=== PATIENT | female | born 1955 | race Caucasian/White ===

== ENCOUNTER 2024-08-05 18:11 | Inpatient (IN) | payer MEDICARE, BC, SELFPAY ==
[2024-08-05] VITALS (10 sets, daily range): BP systolic 141–186; BP diastolic 78–174; BMI 28.1; BMI 27.8
[2024-08-05 14:25] LABS: % Basophils 0.9 % (0-2); % Eosinophils 5.2 % (0-6); % Immature Granulocytes 0.2 % (0-0.5); % Lymphocytes 26.8 % (20.5-51.1); % Monocytes 7.2 % (1.7-9.3); % Neutrophils 59.7 % (42.2-75.2); Absolute Basophils 0.1 10^3/uL (0-0.2); Absolute Eosinophils 0.3 10^3/uL (0-0.7); Absolute Lymphocytes 1.8 10^3/uL (1.2-3.4); Absolute Monocytes 0.5 10^3/uL (0.1-0.6); Absolute Neutrophils 3.9 10^3/uL (1.4-6.5); Hematocrit 43.3 % (37.0-47.0); Hemoglobin 14.7 g/dL (12.0-16.0); Mean Corp Hgb Conc. 33.9 g/dL (33.0-37.0); Mean Corpuscular Hgb 32.6 pg (27.0-31.0); Mean Platelet Volume 9.7 fL (7.4-10.4); Nucleated Red Blood Cells % 0 %; Platelet Count 221 10^3/uL (130-400); Red Blood Cell Count 4.51 10^6/uL (4.20-5.40); Red Cell Dist. Width 12.8 % (11.5-14.5); White Blood Cell Count 6.5 10^3/uL (4.8-10.8)
[2024-08-05 14:39] LABS: ALT (SGPT) 23 U/L (0-35); AST (SGOT) 25 U/L (14-36); Albumin 4.7 g/dl (3.5-5.0); Alkaline Phosphatase 82 U/L (38-126); Blood Urea Nitrogen 25 mg/dl (7-17); Calcium 10.2 mg/dl (8.4-10.2); Carbon Dioxide 30 mmol/L (22-30); Chloride 103 mmol/L (98-107); Glucose 86 mg/dl (70-99); Potassium 4.1 mmol/L (3.5-5.1); Sodium 142 mmol/L (135-145); Total Protein 7.3 g/dl (6.3-8.2); eGFR > 60.00
[2024-08-05 14:51] LABS: Troponin I < 0.012 ng/ml
--- NOTE | 2024-08-05 15:31 | CON.CAR ---
Addendum entered and electronically signed by Otilio Grullon MD 08/05/24 19:57:
I saw and examined the patient in the ER at about 1630 hrs.
The BAG MAKING MACHINE OPERATOR's note was reviewed and I agree with the note.
Comment: Pacemaker interrogated here in by me and [employer] rep. RV lead has failure confirmed. She has sick sinus syndrome and no heart block. Rare RV pacing. Device reprogrammed to AAIR 60-130 to prevent inhibition of pacing from noise of
RV channel. Dr. Odell will discuss lead management including extraction reimplantation, capping and new lead placement, or very conservative approach with the reprogramming performed now.
Original Note:
Consultation
Consultation Request
Date/Time Consultation Requested: 08/05/2024 16:00
Date/Time Consultation Performed: 08/05/2024 16:00
Requesting Provider: Dr. Bird
Performing Provider: BEATRIZ Yepez for Dr. Grullon
Reason for Consultation: RV lead fracture
Medical History
-
Chief Complaint: Pacemaker malfunction
History of Present Illness:
Remedios Lake is a 68-year-old female (known to Dr. Salcedo, her primary clin nurse), with sick sinus syndrome status post Medtronic PPM (2020), PACs, PVCs, NSVT, hypertension, hypothyroidism, and former smoker who presented to the emergency
department with a chief complaint of pacemaker malfunction. She was told by her primary cardiology office that her pacemaker lead was broken and to immediately present to the emergency room. She has no complaints at this time. She has
palpitations which are chronic. They feel 'the same as usual'. She denies chest pain and dizziness. No syncope/presyncope.
Past Medical History
Past Medical History: Arrhythmias (PACs, NSVT, SSS S/P PPM [2020]), Asthma, HTN and Hypothyroidism
Past Surgical History: Orthopedic and Other (Umbilical hernia )
Social History
Tobacco: Former Smoker
Personal:
Living: With Family
Employment: Retired
Family History
Family History: Reviewed & Not Pertinent
Allergies / Home Medications
Allergy/AdvReac Type Severity Reaction Status Date / Time
iodine Allergy Unknown Verified 08/05/24 14:07
morphine Allergy Unknown Verified 08/05/24 14:07
Review of Systems
-
History Source: Patient
All other systems: Negative unless noted
Constitutional: No Symptoms
EENT: No Symptoms
Respiratory: No Symptoms
Cardiac: Palpitations
Abdomen/GI: No Symptoms
: No Symptoms
Musculoskeletal: No Symptoms
Skin: No Symptoms
Neurological: No Symptoms
Endocrine: No Symptoms
Hematologic/Lymphatic: No Symptoms
Physical Exam
Vital Signs
Temp Pulse Resp BP Pulse Ox
98.4 F 74 18 154/100 98
08/05/24 14:07 08/05/24 14:07 08/05/24 14:07 08/05/24 14:07 08/05/24 14:07
Lab Results
08/05/24 14:14
08/05/24 14:14
Troponin I < 0.012 ng/ml 08/05/24 14:14
Physical Exam
General: Well Developed, Well Nourished, No Apparent Distress and Comfortable
HEENT: Normocephalic, Anicteric and Moist Mucous Membranes
Respiratory: Non Labored Respirations
Cardiac: S1/S2 and Regular Rhythm
Breast: Deferred by me
GI: Soft, Non Tender, Non Distended and Normal Bowel Sounds
Rectal: Deferred by Provider
Genito-urinary: No Costovertebral Tender
Musculoskeletal: No Clubbing, No Cyanosis and No Edema
Skin: Warm and Dry
Neuro: AO x 3
Hematologic/Lymphatic: No Lymphadenopathy
Psych: Calm
Impression / Plan
-
RV lead fracture ([employer]tronic)
-Last device check showed AP 95.9%, [employer] NETWORK ENGINEER 0.5% on 07/28/2024
-Programming changed to AAIR 60�120
-Echocardiogram on Thursday
-Dr. Odell to evaluate patient tomorrow for possible lead extraction
Palpitations, she has known PACs/PVCs which do not feel any different to her
Hypertension, chronic
Asthma, chronic and stable, no acute exacerbation
Hypothyroidism, on levothyroxine
Spinal rods, she reports one of these is also fractured
Data Reviewed
-
EKG: Report Reviewed by me
Labs: Labs Reviewed by me
Old Records: Reviewed
--- NOTE | 2024-08-05 17:02 | ED.GENMED ---
History of Present Illness
General
Chief Complaint: AICD Problem
Time Seen by Provider: 08/05/24 16:33
History of Present Illness
History of Present Illness:
Patient is a 68-year-old woman with history of sick sinus syndrome with pacemaker, asthma, hypertension presenting to the emergency department with RV lead fracture. Patient states that she received a call stating that she had a fracture of her RV
lead by her correspondence specialist Dr. Salcedo at [facility]. She was told to come to the emergency department for further evaluation. She denies any chest pain. Occasionally has palpitation secondary to premature contractions. She states that she is
currently at her baseline. Denies any chest pain or shortness of breath which she did state that she had initially. She denies any lightheadedness or syncopal events.
Phy Exam
Physical Exam
Physical Exam:
GENERAL: in no acute distress
HEENT: normocephalic, extraocular movements intact, moist oral mucosa
NECK: normal inspection
RESPIRATORY: no respiratory distress, clear to auscultation bilaterally
CARDIOVASCULAR: regular rate and rhythm
ABDOMEN/: soft, non-distended, non-tender to palpation, no rebound or guarding
EXTREMITIES: non-tender, no edema/swelling
NEUROLOGIC: awake and alert, moves all extremities
SKIN: warm
Course
Orders/Labs/Results
Orders:
Orders
08/05/24 13:54
ECG [Electrocardiogram (*1)] Urgent
Reason for Study: Palpitations
08/05/24 13:55
EKG- Treatment ONCE
08/05/24 14:14
Complete Blood Count/With Diff Urgent
Comprehensive Metabolic Panel Urgent
Troponin I Urgent
08/05/24 14:54
CXR2 [CR Chest - 2 Views ] Routine
Comment:
Reason For Exam: Lead fracture
Abnormal Lab Results
08/05/24
14:14
MCH 32.6 H pg
(27.0-31.0)
BUN 25 H mg/dl
(7-17)
08/05/24 14:14
08/05/24 14:14
Vital Signs
Initial and Last Documented VS:
Initial Vital Signs
Temp Pulse Resp BP Pulse Ox
98.4 F 74 18 154/100 98
08/05/24 14:07 08/05/24 14:07 08/05/24 14:07 08/05/24 14:07 08/05/24 14:07
Last Documented Vital Signs
Temp Pulse Resp BP Pulse Ox
98.4 F 62 18 162/89 99
08/05/24 14:07 08/05/24 16:17 08/05/24 16:17 08/05/24 16:17 08/05/24 16:17
MDM/Problems Addressed
Differential Diagnosis Includes:
Patient is a 60-year-old woman presenting to the emergency department with the pacemaker lead fracture. Prior to evaluation cardiology evaluated patient. I did discuss with cardiology. They changed her programming to AAIR. They recommended
admission for observation and likely echocardiogram later in the week. Blood work obtained prior to evaluation is unremarkable. Discussed with hospitalist who accepted patient to their service.
*Critical Care Note
Total Time (30-74mins, 75-104mins- exclusive of procedures): Not Applicable
ED Attending Note
-
Portions of this chart may have been created with voice recognition software.� Occasional wrong word or��sound alike� substitutions may have occurred due to the inherent limitations of voice recognition software.
Discharge Plan
Departure
Patient Disposition: Admit
Date of Disposition: 08/05/24
Time of Disposition: 17:05
Presentation/result/management discussed w/ accepting MD/DO: Hospitalist
Discharge Problem:
Pacemaker lead fracture
Interventions
Interventions:
*Risk Screen - Suicide Last Done: 08/05/24 14:07
*General Assessment Last Done: 08/05/24 14:07
*Neglect/Abuse Screening Last Done: 08/05/24 14:07
*ED COVID-19 Vaccine History Last Done: 08/05/24 16:52
ED- Cardiac Assessment Last Done: 08/05/24 16:52
Discharge Date and Time
Print Language: FAROESE
--- NOTE | 2024-08-05 17:13 | HPS.HSE ---
Family Physician
-
Family Physician:
Chief Complaint
-
malfunction PPM
History of Present Illness
Patient is 68 years old female with history of hypertension, hypothyroidism, sick sinus syndrome status post pacemaker in the past, asthma, came into the hospital with pacemaker malfunction. Patient was seen by his primary electric lineman who detected
that one of her pacemaker lead was broken and was asked to come to the hospital immediately. Patient does complain of some palpitations on and off and also she states that she has been having some dizziness sort of vertigo-like symptoms over the
last several days. She denies any chest pain or shortness of breath. Denies palpitations at the moment. Denies dizziness at the moment. Denies syncope or presyncope. She also denies any fevers or chills nausea vomiting or diarrhea. Cardiology
consulted in the ER. Labs demonstrate normal electrolytes and normal renal function as well as normal hemoglobin. She was referred to hospitalist service for evaluation.
Medical History
Past Medical History
Past Medical History: Reports Other (Hypertension, hypothyroidism, osteoarthritis, chronic lower back pain, sick sinus syndrome status post pacemaker in 2020, NSVT, PACs, asthma.)
Past Surgical History: Reports Other (Umbilical hernia repair, orthopedic surgeries in the past.)
Social History
Tobacco: Former Smoker
Alcohol: None
Drug: None
Family History
Family History: Not pertinent
Allergies / Home Medications
Allergies reflects when Allergies were last updated in [facility].
Home Medications with original date entered in [facility]
Allergy/Medication List:
Allergies
Allergy/AdvReac Type Severity Reaction Status Date / Time
iodine Allergy Unknown Verified 08/05/24 14:07
morphine Allergy Unknown Verified 08/05/24 14:07
Home Medications
Cascara 1 cap PO DAILY 08/05/24
Cascara 2 cap PO HS 08/05/24
albuterol sulfate 90 mcg/actuation aerosol inhaler 2 puff inhalation R Q4HPRN PRN sob/wheezing 08/05/24
amitriptyline 10 mg tablet 10 mg PO HS 08/05/24
amlodipine 2.5 mg tablet 2.5 mg PO BID 08/05/24
carvedilol 6.25 mg tablet 6.25 mg PO BID 08/05/24
lansoprazole 30 mg capsule,delayed release 30 mg PO DAILY 08/05/24
levothyroxine 100 mcg tablet 100 mcg PO DAILY 08/05/24
meclizine 25 mg tablet 25 mg PO Q6HPRN PRN vertigo 08/05/24
ramipril 10 mg capsule 10 mg PO DAILY 08/05/24
therapeutic multivitamin 1 tab PO DAILY 08/05/24
Review of Systems
-
A 12 point ROS was completed and negative except as noted: Yes
Physical Exam
Vital Signs
Vital Signs
Temp Pulse Resp BP Pulse Ox
98.4 F 62 18 162/89 99
08/05/24 14:07 08/05/24 16:17 08/05/24 16:17 08/05/24 16:17 08/05/24 16:17
Physical exam:
General: Well Developed, Well Nourished and No Apparent Distress
HEENT: Normocephalic, Atraumatic and Moist Mucous Membranes
Respiratory: Clear to Auscultation; Negative Wheezes, Rales or Rhonchi
Cardiac: Regular Rhythm and S1/S2
GI: Soft, Nontender and Nondistended
Musculoskeletal: No Clubbing, No Cyanosis and No Edema
Neuro: Awake, Alert and Oriented
Psych: Calm
Physical Exam
General: Other
Laboratory Results
-
08/05/24 14:14
08/05/24 14:14
Laboratory Results
Total Bilirubin 1.0 mg/dl (0.2-1.3) 08/05/24 14:14
AST 25 U/L (14-36) 08/05/24 14:14
ALT 23 U/L (0-35) 08/05/24 14:14
Alkaline Phosphatase 82 U/L (38-126) 08/05/24 14:14
Troponin I < 0.012 ng/ml 08/05/24 14:14
Data Reviewed
-
Lab Data: Labs Reviewed by me
Impression/Plan
-
IMPRESSION:
Patient is 68 years old female with multiple comorbidities came into the hospital and found to have pacemaker lead malfunction. Patient at increased risk of morbidity mortality patient due to cardiac arrhythmias and malfunction of pacemaker
therefore she will need to be monitor patient and observe in the cardiac unit and requires cardiology intervention therefore require inpatient hospitalization.
PLAN:
Pacemaker malfunction:
Patient to IVU
Keep on cardiac monitoring
Cardiology consult-discussed with cardiology in person today
Cardiology is programming pacemaker to AAIR to 60-120
EPS will evaluate for possible lead extraction tomorrow
Plan for echocardiogram, most likely on Thursday
Hypertension:
Continue home antihypertensives except those that affect the AV node until cleared by cardiology. Will continue with ramipril 10 mg p.o. daily and amlodipine 2.5 mg p.o. daily.
Monitor blood pressure and adjust medications accordingly.
Hypothyroidism:
Continue levothyroxine 100 mcg p.o. daily
Osteoarthritis and chronic pain:
Tylenol as needed
IV Dilaudid as needed
Bowel regimen
Asthma:
Continue bronchodilators as needed
Insomnia:
Continue amitriptyline 10 mg p.o. at nighttime
DVT prophylaxis:
SCDs
CODE STATUS:
Full code
Time spent 75 min
--- NOTE | 2024-08-05 19:17 | PTCARENOTE ---
Pt admitted from ED, pt denies any discomfort. Telemetry shows atrial paced rhythm.
--- NOTE | 2024-08-05 20:52 | PTCARENOTE ---
Received patient at change of shift. Patient awake, alert, and oriented sitting in the chair. BP 143/99, A-Paced 60s-70s, 98% on room air. Patient and RN discussed medication regime-- usually takes Coreg with dinner and amlodipine at bedtime (with
amitriptyline). Neither meds were included in MAR-- reached out to Nader Murphy NP. Adjusted medications-- see MAR. Discussed plan of care for evening. Patient verbalized understanding. Call armstrong within reach.
[2024-08-05] MEDS: ELAVIL 10 MG PO (22:13)
[2024-08-05] MEDS: NORVASC 2.5 MG PO (22:13)
[2024-08-06] VITALS (8 sets, daily range): BP systolic 83–143; BP diastolic 60–119
[2024-08-06] MEDS: SYNTHROID 100 MCG PO (04:46)
[2024-08-06] MEDS: TYLENOL 650 MG PO (04:46)
[2024-08-06 05:17] LABS: Hematocrit 38.6 % (37.0-47.0); Hemoglobin 13.2 g/dL (12.0-16.0); Mean Corp Hgb Conc. 34.2 g/dL (33.0-37.0); Mean Corpuscular Hgb 32.7 pg (27.0-31.0); Mean Corpuscular Volume 95.5 fL (81.0-99.0); Mean Platelet Volume 10.2 fL (7.4-10.4); Platelet Count 203 10^3/uL (130-400); Red Blood Cell Count 4.04 10^6/uL (4.20-5.40); Red Cell Dist. Width 12.9 % (11.5-14.5); White Blood Cell Count 6.1 10^3/uL (4.8-10.8)
[2024-08-06 05:47] LABS: Blood Urea Nitrogen 20 mg/dl (7-17); Calcium 9.7 mg/dl (8.4-10.2); Carbon Dioxide 28 mmol/L (22-30); Chloride 104 mmol/L (98-107); Estimated Creatinine Clearance 95 ml/min; Glucose 99 mg/dl (70-99); Magnesium 2.1 mg/dl (1.6-2.3); Potassium 3.8 mmol/L (3.5-5.1); Sodium 141 mmol/L (135-145); eGFR > 60.00
--- NOTE | 2024-08-06 08:17 | PTCARENOTE ---
Patient sitting on side of bed finished breakfast, complaints of lightheadedness and nausea BP 83/60. Placed supine in bed symptoms resolved, BP 120/72
--- NOTE | 2024-08-06 09:42 | W.PN.HOSP.TC ---
Today's Communication/Plan
-
d/c planning today
Assessment / Plan
Assessment / Plan
Physical exam:
General: Well Developed, Well Nourished and No Apparent Distress
HEENT: Normocephalic, Atraumatic and Moist Mucous Membranes
Respiratory: Clear to Auscultation; Negative Wheezes, Rales or Rhonchi
Cardiac: Regular Rhythm and S1/S2
GI: Soft, Nontender and Nondistended
Musculoskeletal: No Clubbing, No Cyanosis and No Edema
Neuro: Awake, Alert and Oriented
Psych: Calm
A/P:
Pacemaker malfunction with R lead fracture:
Cardiology reviewed with patient options and cleared her for d/c today and outpatient revision.
Prior to today:
Keep on cardiac monitoring
Cardiology consult-discussed with cardiology in person today
Cardiology is programming pacemaker to AAIR to 60-120
EPS will evaluate for possible lead extraction tomorrow
Plan for echocardiogram, most likely on Thursday
Hypertension:
Continue home antihypertensives except those that affect the AV node until cleared by cardiology. Will continue with ramipril 10 mg p.o. daily and amlodipine 2.5 mg p.o. daily.
Monitor blood pressure and adjust medications accordingly.
Hypothyroidism:
Continue levothyroxine 100 mcg p.o. daily
Osteoarthritis and chronic pain:
Tylenol as needed
IV Dilaudid as needed
Bowel regimen
Asthma:
Continue bronchodilators as needed
Insomnia:
Continue amitriptyline 10 mg p.o. at nighttime
DVT prophylaxis:
SCDs
CODE STATUS:
Full code
Anticipated Discharge: Today
Subjective/Interval History
-
Date of Service: August 06, 2024
no new complaints
Objective Data
-
Labs:
Laboratory Results
08/06/24
04:42
WBC 6.1
Hgb 13.2
Hct 38.6
Plt Count 203
Sodium 141
Potassium 3.8
Chloride 104
Carbon Dioxide 28
BUN 20 H
Creatinine 0.6
Glucose 99
Calcium 9.7
Vital Signs:
Vital Signs
Temp Pulse Resp BP Pulse Ox
97.9 F 62 18 128/78 97
08/06/24 07:43 08/06/24 06:45 08/06/24 07:43 08/06/24 04:37 08/06/24 07:43
--- NOTE | 2024-08-06 11:48 | W.PN.CD ---
Today's Communication / Plan
-
-Stable for discharge
-Avoid strenuous exercise for the next few weeks
-Okay to perform activity of daily living
-No driving until extraction is done.
Impression / Plan
-
RV lead fracture ([employer]tronic)
-Last device check showed AP 95.9%, TEACHER 0.5% on 07/28/2024
-Programming changed to AAIR 60�120
-Patient is currently atrially paced. With programming changed, there is no sign of noise induced inhibition of the pacing
-RV lead fracture was noted on the interrogation.
-No obvious fractures noted on the x-ray.
-We discussed in detail various management options for the patient.
-At this time, the atrial pacemaker is working normally. There is no significant ventricular pacing needed for the patient
-We discussed conservative management with keeping atrial pacing only however with progressive disease, patient may need ventricular pacing in near future.
-Taking out a fractured lead is more important Adlee then lead. Alternatively, we can proceed with implantation of a second lead in the RV and The fractured RV lead.
-The third option would be to extract the fractured lead and reimplant a new RV lead. This appears to be the best option for the patient with no hardware left. However, at this time patient's pacemaker is working adequately and gives us enough
time to arrange for extraction safely.
-Will plan for lead extraction and implantation in a month or so with backup from CT surgery, perfusion and cardiac anesthesia
-Okay to discharge home today with continued monitoring and will plan for elective lead extraction plan in the next few weeks.
Palpitations, she has known PACs/PVCs which do not feel any different to her
Hypertension, chronic
Asthma, chronic and stable, no acute exacerbation
Hypothyroidism, on levothyroxine
Spinal rods, she reports one of these is also fractured
Physical Exam
Vital Signs/Labs
Vital Signs
Temp Pulse Resp BP Pulse Ox
98.3 F 62 18 128/78 98
08/06/24 11:28 08/06/24 11:23 08/06/24 11:28 08/06/24 04:37 08/06/24 11:28
08/05/24 08/06/24 08/07/24
06:59 06:59 06:59
Actual Weight 78.1 kg
08/06/24 04:42
08/06/24 04:42
Magnesium 2.1 mg/dl (1.6-2.3) 08/06/24 04:42
LAB Results
08/05/24
14:14
Troponin I < 0.012
Physical Exam
Constitutional: No acute distress and Comfortable
EENT: Anicteric and Moist mucous membranes
Cardiovascular: Rhythm & rate is regular, Pedal edema is absent, JVD pressure is normal and Systolic murmur absent
Respiratory: Respiratory effort normal, Lungs clear to auscul. and Wheeze Absent
GI: Soft, Distention absent, Non tender and Normal bowel sounds
Neuro/Psych: Alert, Oriented and AO x 3
Other: Cardiac Device Site (No sign of infection, fluctuation or discharge. Wound has healed nicely)
Data Reviewed
-
Date of Service: August 06, 2024
Medical Decision Making: External Notes
EKG: Tracing Personally Visualized and interpreted
Labs: Labs Reviewed by me
Old Records: Reviewed
[2024-08-06] MEDS: ALTACE 10 MG PO (12:07)
--- NOTE | 2024-08-06 14:34 | W.DCSUMMARY ---
Discharge Summary
Discharge Data
Date of Admission: 08/05/24
Date of Discharge: 08/06/24
-
Pending Results: No
Hospital Course
Patient is 68 years old female with sick sinus syndrome status post pacemaker, hypertension, hypothyroidism presented to the hospital with pacemaker malfunction. Cardiology noticed that she had pacemaker lead broken and asked her to present to the
hospital immediately. Patient was evaluated by cardiology and her device was reprogrammed to AAIR 60-130 to prevent inhibition of pacing from noise of RV channel. She was kept overnight on cardiac monitoring and she did well rest of hospital stay.
EP cardiology followed her next day and discussed with patient several options including keeping atrial pacing only but may need ventricular pacing in the future versus taking out a fractured lead versus proceeding with implantation of a second
lead in the right ventricle versus extraction of the fractured lead and reimplantation of a new right ventricular lead. In any event, since patient had adequate atrial pacing and working normally and no significant ventricular pacing needed
cardiology was okay for her to be discharged home today and plan for elective lead extraction in the next few weeks. She was instructed to avoid strenuous exercise and no driving until extraction is done but can continue with activity of daily
living. Otherwise, she is hemodynamically stable and afebrile. She is back on her home medications. Cardiology cleared her for discharge. She will be discharged in stable condition today.
Discharge duration: 35 minutes
Discharge Plan
-
Patient Disposition: Home (Routine Discharge)
Discharge Diagnosis/Procedures: Pacemaker malfunction with right lead fracture status post programming of pacer. Hypertension.
Diet: Low Cholesterol
Activity: Other activity
Additional Activity: As instructed by cardiology
Blood Work: PCP to order CBC, BMP within 1 week
Referrals:
Royce Odell MD [Active] - in two to three weeks
Terry Higuera DO [Family Provider] - in less than 1 week
Prescriptions:
Continued
carvedilol 6.25 mg tablet
6.25 mg PO BID
amlodipine 2.5 mg tablet
2.5 mg PO BID
levothyroxine 100 mcg tablet
100 mcg PO DAILY
amitriptyline 10 mg tablet
10 mg PO HS
meclizine 25 mg tablet
25 mg PO Q6HPRN PRN (Reason: vertigo)
lansoprazole 30 mg capsule,delayed release(DR/EC)
30 mg PO DAILY
albuterol sulfate 90 mcg/actuation HFA aerosol inhaler
2 puff INHALATION R Q4HPRN PRN (Reason: sob/wheezing)
ramipril 10 mg capsule
10 mg PO DAILY
therapeutic multivitamin Tablet
1 tab PO DAILY
Cascara
1 cap PO DAILY
Cascara
2 cap PO HS
Discharge Orders:
Discharge Patient (As Directed); Ordered 08/06/24
Ordered By: Junior Corado
Discharge Date and Time
Discharge Date/Time: 08/06/24 15:50
Print Language: MAORI
--- NOTE | 2024-08-06 15:09 | PTCARENOTE ---
Patient discharged to home. All discharge teaching completed, patient verbalized understanding. IV and telemetry removed. will drive patient home today
--- NOTE | 2024-08-08 16:35 | CM ---
pt is prev indep, no dc planning needs. dc to home
== END 2024-08-06 15:50 | disposition home or self-care (01) | DRG 310 ==
LOC: IVU 18:11
PROVIDERS: ADMITTING PHYSICIAN Hospitalist; CONSULT PHYSICIAN Internal Medicine Cardiovascular Disease; EMERGENCY PHYSICIAN Student in an Organized Health Care Education/Training Program; FAMILY PHYSICIAN Family Medicine
PROC: 4B02XSZ Measurement of Cardiac Pacemaker, External Approach (ICD-10-PCS; 2024-08-05)
DX: T82.110A Breakdown (mechanical) of cardiac electrode, initial encounter (principal); Y83.8 Other surgical procedures as the cause of abnormal reaction of the patient, or of later complication, without mention of misadventure at the time of the procedure; Y92.9 Unspecified place or not applicable; Y71.2 Prosthetic and other implants, materials and accessory cardiovascular devices associated with adverse incidents; I49.5 Sick sinus syndrome; E03.9 Hypothyroidism, unspecified; M19.90 Unspecified osteoarthritis, unspecified site; G89.29 Other chronic pain; M54.50 Low back pain, unspecified; G47.00 Insomnia, unspecified; J45.909 Unspecified asthma, uncomplicated; I10 Essential (primary) hypertension; Z87.891 Personal history of nicotine dependence; Z95.0 Presence of cardiac pacemaker; Z88.5 Allergy status to narcotic agent; Z91.041 Radiographic dye allergy status; Z79.890 Hormone replacement therapy
CPT/HCPCS: 71046; 80048; 80053; 83735; 84484; 85025; 85027; 93005; 99284

== ENCOUNTER 2024-12-23 07:35 | Inpatient (IN) | payer MEDICARE, BC, SELFPAY ==
[2024-12-12 13:18] VITALS: BMI 28.9
[2024-12-12 13:53] LABS: % Eosinophils 11.5 % (0-6); % Immature Granulocytes 0.2 % (0-0.5); % Lymphocytes 31.5 % (20.5-51.1); % Neutrophils 47.8 % (42.2-75.2); Absolute Basophils 0.1 10^3/uL (0-0.2); Absolute Eosinophils 0.6 10^3/uL (0-0.7); Absolute Lymphocytes 1.6 10^3/uL (1.2-3.4); Absolute Monocytes 0.4 10^3/uL (0.1-0.6); Absolute Neutrophils 2.4 10^3/uL (1.4-6.5); Hematocrit 42.3 % (37.0-47.0); Hemoglobin 14.1 g/dL (12.0-16.0); Mean Corp Hgb Conc. 33.3 g/dL (33.0-37.0); Mean Corpuscular Hgb 31.9 pg (27.0-31.0); Mean Corpuscular Volume 95.7 fL (81.0-99.0); Mean Platelet Volume 10.1 fL (7.4-10.4); Nucleated Red Blood Cells % 0 %; Platelet Count 242 10^3/uL (130-400); Red Blood Cell Count 4.42 10^6/uL (4.20-5.40); Red Cell Dist. Width 12.9 % (11.5-14.5); White Blood Cell Count 5.1 10^3/uL (4.8-10.8)
[2024-12-12 14:08] LABS: INR 0.98; PT 13.3 Sec (11.4-14.6)
[2024-12-12 14:35] LABS: ALT (SGPT) 18 U/L (0-35); AST (SGOT) 22 U/L (14-36); Albumin 4.8 g/dl (3.5-5.0); Alkaline Phosphatase 91 U/L (38-126); Blood Urea Nitrogen 24 mg/dl (7-17); Calcium 10.2 mg/dl (8.4-10.2); Carbon Dioxide 28 mmol/L (22-30); Chloride 104 mmol/L (98-107); Estimated Creatinine Clearance 69 ml/min; Glucose 97 mg/dl (70-99); Potassium 4.5 mmol/L (3.5-5.1); Sodium 142 mmol/L (135-145); Total Bilirubin 0.9 mg/dl (0.2-1.3); Total Protein 7.3 g/dl (6.3-8.2); eGFR > 60.00
[2024-12-23] VITALS (12 sets, daily range): BP systolic 105–150; BP diastolic 66–131; BMI 28.6
--- NOTE | 2024-12-23 07:58 | PTCARENOTE ---
received pt as a SDA into 2267, confirmed shower x2 MUSIC COPYIST, pt prepped w chg wipes. Admission questions and medication list reviewed w the pt. IV line placed, ABO drawn and sent. Plan of care reviewed and questions encouraged.
[2024-12-23] MEDS: BENADRYL 50 MG IV (10:17)
[2024-12-23] MEDS: DECADRON 8 MG IV (10:17)
--- NOTE | 2024-12-23 12:42 | ITS.CL.PN ---
Traffic Inspector - Procedure Note
Procedure
Procedure Note:
Extraction Procedure:
Extraction of fractured RV pacing lead and re-implantation of the dual chamber PPM.
Ms. Nash is a very pleasant 69 yr old woman with a history of severe sick sinus syndrome and s/p duak chamber PPM (01/16/21) with 100% RA pacing and dependency on atrial pacign with rare RV pacing was noed to have RV lead fracture with noise in the
RV lead was leading to atrial lead pacing inhibition and is recommended RV lead extraction and re-implantation.
Indications: Poorly functioning dual chamber PPM with fractured RV lead
Date of the Procedure: 12/23/2024
Pre-Operative Diagnosis: Sick sinus syndrome with malfunctioning pacemaker
Post-Operative Diagnosis: Sick sinus syndrome
Procedure Performed: RV lead extraction and reimplantation of RV pacing lead.
�
Performing Physicians:
Royce Odell MD
Anesthesia:
See anesthesia records
Detailed Description of the Procedure:
Written informed consent was obtained from the patient after a full explanation of the risks and benefits of the procedure. The patient was brought to the lab in the fasting state. Prophylactic antibiotics were given prior to the start of the
procedure. Continuous electrocardiographic and hemodynamic monitoring was initiated.
The initial rhythm was atrial paced rhythm.
General anesthesia with intubation and mechanical conventional ventilation used. Anesthesia staff performed intubation monitored the patient during case. The ventral torso was meticulously prepared with surgical scrub and allowed to dry with no
pooling. Sterile draping was applied to cover the operative field. The image intensifier was draped with a sterile bag and positioned over the patient's chest.
A surgical pause was performed in accordance with hospital regulations.� Anesthesia service provided sedation as reported separately.� Antibiotics administered IV for risk of bacterial colonization.
Venogram:
A 20 ml upper extremity venogram demonstrated that showed patent left sided axillary and subclavian veins. Cephalic vein was also identified and was patent.� The previous pacemaker leads were inserted via axillary vein puncture.
Groin Prep and vascular access:
After infiltration with lidocaine, large bore venous access was established via the right and left femoral veins. An intra-arterial catheter was placed via the left femoral artery for emergency access.
A 6 Fr sheath with compliant balloon Prep kit was placed and the guidewire was placed from the right femoral vein to the right jugular vein.
A compliant balloon was placed in the right atrium and to the SVC and was inflated inside with adequate expansion. The balloon was deflated and was brought down to the IVC.
Pocket Exploration:
After infiltration with lidocaine, an incision was made in the left delto-pectoral groove over the previously implanted device. Using blunt dissection and electrocautery, the incision was carried down to the level of the device, being careful to
maintain adequate hemostasis and not disrupt the previously implanted leads. Fluoroscopy was performed with showed normal appearance of the existing leads and during the procedure. The generator was removed from the pocket. The leads were
individually released from the scar tissue and the fibrotic tissue was removed.
RV lead extraction:
First, the RV pacemaker lead pulled from the insertion site with traction/countertraction. The stylet was placed that waas successfully went to the tip and the tip was able to uncoil and the distal screw was pulled inside the lead. The RV lead
initially gave resistance but gave out by pulling into the right atrium.
MORGAN was reviewed repeatedly and aggressively without any accumulation of fluid in the pericardium.� Hemodynamically patient remained stable..
Re-implantation of the RV pacing lead and dual chamber pacemaker:
Following infiltration with local anesthetic, the axillary vein was accessed using the fluoroscopic guidance using the micro-puncture apparatus. The vascular sheaths were introduced for lead access.
The vascular peel-away sheath was placed and the guidewire was placed into the IVC.�
The RV pacing lead was advancedinto the right ventricle.
The right ventricular lead was secured in position with an active fixation technique at the apical septal location.
There was excellent sensing, pacing, and impedance from the leads, with no diaphragmatic stimulation at 10 V output. Bovie cautery, antibiotics, and fluoroscopy were used.
The sheaths were withdrawn, and the thresholds remained acceptable. The leads were secured in position at the venous entry site with 2-0 Ethibond.
The electrode terminals of the leads were connected to the pulse generator, which was placed into the pocket. The wound was irrigated thoroughly with antibiotic solution.
A Tyrx pouch was placed around the generator and the leads.
The wound was closed in 3 layers using 2-0 V loc then 4-0 Monocryl sutures to the dermis.
Procedure End:
The procedure was tolerated well. A bandage was applied to the incision area to be removed in a day. A pressure dressing was applied.
A pressure dressing was applied.
The sheaths were removed from the groin. Figureof 8 suture and Manual pressure applied to access sites to achieve hemostasis. Anesthesia was reversed and the anesthesia staff extubated then observed the patient until the return of pre-sedation
mental status. The patient was transferred to the recovery area.
The existing pacemaker leads were explanted during this procedure on 12/23/2024.
Estimated Blood loss:
5 cc
Specimens Removed:
None
Urine output:
None
Packs / Drains/ Tubes:
None
Instrument / Sponge Count Correct:
Yes
Complications of the Procedure:
None
Condition of Patient at Time of Transfer:
Hemodynamically stable with no neurological or vascular compromise.
Explanted Device information:
Explanted on 12/23/2024
����������� RV Lead: Medtronic 5076-58, SN: [id number]
Currently implanted device information:
Generator:
����������� Medtronic; Model: W1DR01; Serial #[id number] (old generator was reused)
Atrial Lead:
����������� Medtronic; Model: 5076-52; Serial # [id number] � Implanted: 01/16/21
Measured data in the right atrium was sensing of 2.5 mV, impedance of 456 ohms and threshold of 0.5 V at 0.4ms.
RV Lead: Medtronic; Model: 5076-58; Serial # [id number] - Implanted: 12/23/2024
Measured data in the RV lead was sensing of 7.1V, impedance of 608 ohms and threshold of 0.5 V at 0.4ms
Vasu parameter settings were AAIR <=>DDDR 60-130 bpm.�
����������� Mode Switch: On
����������� Paced AV interval: 180ms
����������� Sensed AV interval: 150 ms.
����������� Rate Adaptive A-V Interval: Off
Output parameters:
����������������������� Amplitude (V)������������� Pulse Width (ms)������� Sensitivity (mV)
����������� RA: ���� 1.5 ����������������������������� 0.4������������������������������ 0.3
����������� RV:����� 3.5������������������������������ 0.4������������������������������ 0.9
Summary:
Successful extraction of the malfunctioning fractured atrial and ventricular leads and preimplantation of MRI compatible dual-chamber Medtronic pacemaker
Results/Recommendations:
1-Please follow up CXR
2. Please Admit to CVICU for observation.
Instructions to be given to patient:
- Please follow up with [facility] at [address] [place] [address] ([phone]) to get your wound checked within 14 days of your discharge.
- Do not wet incision site until after it is evaluated at cardiology clinic. No showers until then. Sponge baths are OK.
- No swimming until cleared by the cardiology clinic.
- Do not lift left elbow above shoulder, particularly with sudden jerking movements, for 1 month
- Do not lift anything weighing more than 10 pounds with the left arm for 1 month
- If you notice any fevers, shortness of breath, lightheadedness, chest pain, or worsening swelling in the wound site, please contact the arrhythmia clinic, contact your impregnator and drier helper, or present to the hospital for evaluation.
Royce Odell MD [facility]
Electrophysiology
[2024-12-23] MEDS: ZOFRAN 4 MG IV (13:29)
[2024-12-23] MEDS: PERCOCET 5/325 1 TABLET PO ×2 (14:20→21:32)
--- NOTE | 2024-12-23 14:30 | PTCARENOTE ---
Patient received from EP lab s/p RV lead removal and replacement. A-paced via cm, SaO2 @ 99% on 2lnc. L radial arterial line present - leveled, flushed, and calibrated w/good waveform returned. Contreras catheter to gravity. B/L groin procedural sites
stable, no bleeding, ecchymosis, or hematomas noted, distal pulses weakly palp. Shanique Molina to bedside, updated to status, orders given. Patient updated to plan of care for the afternoon, in agreement. See work list for full assessment and
interventions performed.
--- NOTE | 2024-12-23 15:32 | CM ---
Chart reviewed. Patient is independent of ADLS, lives with her in a [address], [address], 0 [address]ME. Plan is for the patient to return home. CM to follow
--- NOTE | 2024-12-23 16:46 | PTCARENOTE ---
R groin site figure of 8 d/c'd as ordered w/out issue. Patient tolerated well.
[2024-12-23] MEDS: ANCEF 5 IV (18:56)
[2024-12-23] MEDS: NORVASC 2.5 MG PO (19:57)
[2024-12-23] MEDS: COREG 6.25 MG PO (19:57)
--- NOTE | 2024-12-23 20:00 | PTCARENOTE ---
Assumed care of pt from dayshift RN. Walking rounds completed. Pt AAOx3. 100% A-paced on the tele monitor. Duel chamber PPM in place. Occasional PVCs. HR 60s. B/L radial pulses palpable. DP pulses weak on palpation. No edema. Pt on RA. POX 97%. Lung
sounds audible. Deep breathing encouraged. Abdomen round. Nontender. Hypoactive BS. No nausea. Left upper chest pressure dressing intact. Left arm sling in place. B/L groin sites intact and soft. No hematoma. PIV x2 intact. Pt OOB to the chair. No
pain at this time. See worklist for full nursing assessment and interventions. Call armstrong within reach.
[2024-12-24 00:11] VITALS: BP 96/57
[2024-12-24 00:12] VITALS: BP 96/57
--- NOTE | 2024-12-24 00:14 | PTCARENOTE ---
No acute change in assessment. Pt is A-paced on the tele monitor w/ occasional PVCs. HR 60s. BP stable. Pt is 95% on RA. Left upper chest incision intact. Left arm immobilizer maintained. B/L groin sites soft/intact. No hematomas at this time. No
c/o pain at this time. Call armstrong within reach.
[2024-12-24 03:31] VITALS: BP 114/67
[2024-12-24 03:32] VITALS: BP 114/67
[2024-12-24] MEDS: ANCEF 5 IV (03:54)
[2024-12-24 04:06] VITALS: BMI 28.9
[2024-12-24 04:06] LABS: Hematocrit 36.1 % (37.0-47.0); Hemoglobin 12.2 g/dL (12.0-16.0); Mean Corp Hgb Conc. 33.8 g/dL (33.0-37.0); Mean Corpuscular Hgb 32.1 pg (27.0-31.0); Mean Platelet Volume 10.2 fL (7.4-10.4); Platelet Count 188 10^3/uL (130-400); Red Cell Dist. Width 12.8 % (11.5-14.5); White Blood Cell Count 6.4 10^3/uL (4.8-10.8)
--- NOTE | 2024-12-24 04:21 | PTCARENOTE ---
No change in assessment. Pt A-paced w/ PVCs on the tele monitor. HR 60s. BP stable. Pt is 95% on RA. B/L groin sites intact and soft. No hematoma. Left upper chest dressing C/D/I. Left arm immobilizer maintained. EKG obtained. Labs drawn and sent.
Pt OOB to void and then repositioned back into bed. No c/o pain at this time. Call armstrong within reach.
[2024-12-24 06:07] LABS: Blood Urea Nitrogen 22 mg/dl (7-17); Calcium 9.5 mg/dl (8.4-10.2); Carbon Dioxide 26 mmol/L (22-30); Chloride 107 mmol/L (98-107); Estimated Creatinine Clearance 92 ml/min; Glucose 111 mg/dl (70-99); Potassium 4.4 mmol/L (3.5-5.1); Sodium 139 mmol/L (135-145); eGFR > 60.00
[2024-12-24 08:44] VITALS: BP 102/62
[2024-12-24] MEDS: SYNTHROID 100 MCG PO (08:50)
[2024-12-24] MEDS: NORVASC 2.5 MG PO (08:56)
[2024-12-24] MEDS: COREG 6.25 MG PO (08:56)
[2024-12-24] MEDS: ALTACE 10 MG PO (08:56)
--- NOTE | 2024-12-24 09:51 | W.PN.CD ---
Today's Communication / Plan
-
- Discharge home today
- Incision check in our office in 1-2 weeks then follow up with Dr. Salcedo
Impression / Plan
-
69-year-old female with symptomatic bradycardia and sick sinus syndrome with sinus arrest for which she did undergo a Medtronic dual-chamber pacemaker implant in December 2020 with RV lead fracture leading to noise and atrial pacing inhibition and pauses
s/p RV lead extraction and reimplantation.
Lead extraction
- Both groins are healed well.
- No hematoma or bleeding noted
PPM
- Pressure dressing removed
- No fluctuation or bleeding.
- Atrial paced rhythm noted.
- Stable for discharge home today.
Physical Exam
Vital Signs/Labs
Vital Signs
Temp Pulse Resp BP Pulse Ox
98.2 F 60 16 102/62 94
12/24/24 07:44 12/24/24 09:40 12/24/24 07:44 12/24/24 08:44 12/24/24 08:55
12/23/24 12/24/24 12/25/24
06:59 06:59 06:59
Actual Weight 78.8 kg
12/24/24 03:51
12/24/24 03:51
PT 13.3 Sec (11.4-14.6) 12/12/24 13:26
INR 0.98 12/12/24 13:26
Magnesium 2.0 mg/dl (1.6-2.3) 12/24/24 03:51
Physical Exam
Constitutional: No acute distress and Comfortable
EENT: Anicteric and Moist mucous membranes
Cardiovascular: Rhythm & rate is regular, Pedal edema is absent and JVD pressure is normal
Respiratory: Respiratory effort normal, Lungs clear to auscul. and Wheeze Absent
GI: Soft, Distention absent and Non tender
Neuro/Psych: Alert, Oriented, AO x 3 and Motor deficits absent
Other: Cardiac Device Site
Data Reviewed
-
Date of Service: December 24, 2024
Medical Decision Making: Reviewed Test Results, Test Interpretation and Review of Case with other Provider
EKG: Tracing Personally Visualized and interpreted
X-Ray/CT/US/MRI/NUC/PET: Image Personally Visualized and interpreted
Labs: Labs Reviewed by me
Old Records: Reviewed
--- NOTE | 2024-12-24 10:59 | PTCARENOTE ---
Rec'd Pt as transfer from CVICU, A,A+Ox3. lungs clear, bilat femoral dsgs D+I. L chest wall dsg D+I. Pt has L arm immobilizer on. Denies need for pain med.
[2024-12-24 12:17] VITALS: BP 98/68
--- NOTE | 2024-12-24 14:29 | PTCARENOTE ---
D/C instructions reviewed with Pt, she expressed understanding.
--- NOTE | 2024-12-27 07:14 | W.DS.TRANS ---
DC Summary - Rn Integrity
-
Discharge Instructions:
Discharge Diagnosis/Procedures Pacemaker lead extraction and implantation
Diet Low Cholesterol
Driving Restrictions No driving for 1 week
Bathing Restrictions OK to Shower
Instructions:
Stand-Alone Forms: DC Inst - Implanted Device
Changes to Home Medications: No
Discharge Medications:
DC Medications w/original date entered in [facility]
albuterol sulfate 90 mcg/actuation aerosol inhaler 2 puff inhalation R Q4HPRN PRN sob/wheezing 08/05/24
amlodipine 2.5 mg tablet 2.5 mg PO BID Blood Pressure 08/05/24
carvedilol 6.25 mg tablet 6.25 mg PO BID Blood Pressure 08/05/24
lansoprazole 30 mg capsule,delayed release 30 mg PO DAILY Gastrointestinal Issue 08/05/24
levothyroxine 100 mcg tablet 100 mcg PO DAILY Thyroid 08/05/24
ramipril 10 mg capsule 10 mg PO DAILY Blood Pressure 08/05/24
therapeutic multivitamin 1 tab PO DAILY Supplement 08/05/24
cascara sagrada 450 mg capsule 1,350 mg PO DAILY Constipation 12/09/24
cholecalciferol (vitamin D3) 10 mcg (400 unit) tablet (Vitamin D3) 10 mcg PO DAILY 12/09/24
coenzyme Q10 100 mg capsule (CoQ-10) 400 mg PO DAILY 12/09/24
omega-3 fatty acids 500 mg PO DAILY 12/09/24
vit C-vit U-jpbqjw-dbufyxqj capsule 1 cap PO DAILY 12/09/24
vitamin A 10,000 unit tablet 10,000 unit PO DAILY 12/09/24
meloxicam 15 mg tablet 15 mg PO DAILY 12/23/24
Home Medication Changes
Pending Results: No
== END 2024-12-24 14:20 | disposition home or self-care (01) | DRG 262 ==
LOC: IVU 07:35
PROVIDERS: Nurse Practitioner Adult Health; ADMITTING PHYSICIAN Internal Medicine Cardiovascular Disease; FAMILY PHYSICIAN Family Medicine
PROC: 02WA3MZ Revision of Cardiac Lead in Heart, Percutaneous Approach (ICD-10-PCS; 2024-12-23)
PROC: 0JWT0PZ Revision of Cardiac Rhythm Related Device in Trunk Subcutaneous Tissue and Fascia, Open Approach (ICD-10-PCS; 2024-12-23)
PROC: 3E0102A Introduction of Anti-Infective Envelope into Subcutaneous Tissue, Open Approach (ICD-10-PCS; 2024-12-23)
DX: T82.110A Breakdown (mechanical) of cardiac electrode, initial encounter (principal); Y83.8 Other surgical procedures as the cause of abnormal reaction of the patient, or of later complication, without mention of misadventure at the time of the procedure; Y92.9 Unspecified place or not applicable; Y71.2 Prosthetic and other implants, materials and accessory cardiovascular devices associated with adverse incidents; I49.5 Sick sinus syndrome; I10 Essential (primary) hypertension; K21.9 Gastro-esophageal reflux disease without esophagitis; E06.3 Autoimmune thyroiditis; R26.2 Difficulty in walking, not elsewhere classified; K80.20 Calculus of gallbladder without cholecystitis without obstruction; K59.09 Other constipation; I45.10 Unspecified right bundle-branch block; Z96.612 Presence of left artificial shoulder joint; Z95.0 Presence of cardiac pacemaker; Z98.42 Cataract extraction status, left eye; Z98.41 Cataract extraction status, right eye; Z87.891 Personal history of nicotine dependence; Z79.890 Hormone replacement therapy
CPT/HCPCS: 33216; 33235; 36415; 71045; 71046; 80048; 80053; 83735; 85025; 85027; 85610; 86850; 86900; 86901; 86920; 93005; C1892; C1894; Q9967